=== PATIENT | male | born 1950 | race Caucasian/White ===

== ENCOUNTER 2018-10-20 08:57 | Emergency (ER) | payer MEDICARE, BC ==
[2018-10-20 09:25] VITALS: BP 144/88
--- NOTE | 2018-10-20 09:50 | EDM.PDOC ---
ED HPI GENERAL MEDICAL PROBLEM - General Chief Complaint: General Stated Complaint: CHEST PAIN, LEFT ARM ACHE AND PAINS ON LT SIDE Time Seen by Provider: 10/20/18 09:30 Source of Information: Reports: Patient, Family History Limitations: Reports: No Limitations - History of Present Illness INITIAL COMMENTS - FREE TEXT/NARRATIVE: 68-year-old male who is been having intermittent abdominal pain in the left lower quadrant for the past 2 months, and brief intermittent upper abdominal and chest discomfort for the past several weeks. He had another episode this morning so called the clinic to talk to Dr. Ramos but was sent over to the emergency room. He arrives asymptomatic. He walks one to 2 miles a day without difficulty. His main concern is his abdomen, he feels distended with lots of "burping" but his appetite is fine, bowels are normal, his guaiac was negative last November. No weight loss. Onset: Gradual Improves with: Reports: Other (Actually seems better when he is active, has no symptoms when walking) Worsens with: Reports: None Left Chest Pain Score (Numeric/FACES): 5 - Related Data Allergies Allergy/AdvReac Type Severity Reaction Status Date / Time Penicillins Allergy Mild Rash Verified 10/20/18 09:19 Home Meds: Home Meds NK [No Known Home Meds] 12/22/14 [History] Past Medical History HEENT History: Reports: Cataract, Impaired Vision Gastrointestinal History: Reports: Other (See Below) Other Gastrointestinal History: umbilical - Past Surgical History HEENT Surgical History: Reports: Cataract Surgery Social & Family History - Tobacco Use Smoking Status *Q: Never Smoker - Alcohol Use Days Per Week of Alcohol Use: 2 Number of Drinks Per Day: 1 Total Drinks Per Week: 2 - Recreational Drug Use Recreational Drug Use: No ED ROS GENERAL - Review of Systems Review Of Systems: See Below Constitutional: Denies: Fever, Chills HEENT: Reports: No Symptoms Respiratory: Denies: Shortness of Breath Cardiovascular: Reports: Chest Pain (Intermittent brief chest spasms or pains in the epigastric and substernal area, usually lasting just a few seconds). Denies: Dyspnea on Exertion, Palpitations GI/Abdominal: Reports: Abdominal Pain (Left lower quadrant, intermittent over the past 3 months). Denies: Constipation, Diarrhea, Hematemesis, Hematochezia, Vomiting : Reports: No Symptoms Skin: Reports: No Symptoms Neurological: Reports: No Symptoms Psychiatric: Reports: No Symptoms ED EXAM, GENERAL - Physical Exam Exam: See Below Exam Limited By: No Limitations General Appearance: Alert, No Apparent Distress Eye Exam: Bilateral Eye: Normal Inspection Neck: Supple Respiratory/Chest: No Respiratory Distress, Lungs Clear Cardiovascular: Regular Rate, Rhythm GI/Abdominal: Soft, Non-Tender. No: Rebound, Tender Extremities: Normal Inspection Neurological: Alert, Oriented Psychiatric: Normal Affect, Normal Mood Skin Exam: Warm, Dry Course - Vital Signs Last Recorded V/S: Last Vital Signs Temp 95.6 F 10/20/18 09:18 Pulse 86 10/20/18 09:18 Resp 21 H 10/20/18 09:18 BP 144/88 H 10/20/18 09:18 Pulse Ox 98 10/20/18 09:18 - Orders/Labs/Meds Labs: Laboratory Tests 10/20/18 10/20/18 Range/Units 09:49 09:49 WBC 4.9 (4.5-11.0) K/uL RBC 5.08 (4.30-5.90) M/uL Hgb 16.5 H (12.0-15.0) g/dL Hct 45.9 (40.0-54.0) % MCV 90 (80-98) fL MCH 33 H (27-31) pg MCHC 36 (32-36) % Plt Count 253 (150-400) K/uL Neut % (Auto) 55 (36-66) % Lymph % (Auto) 30 (24-44) % [place] % (Auto) 13 H (2-6) % Eos % (Auto) 2 (2-4) % Baso % (Auto) 1 (0-1) % Sodium 138 L (140-148) mmol/L Potassium 4.3 (3.6-5.2) mmol/L Chloride 101 (100-108) mmol/L Carbon Dioxide 26 (21-32) mmol/L Anion Gap 15.3 H (5.0-14.0) mmol/L BUN 16 (7-18) mg/dL Creatinine 0.9 (0.8-1.3) mg/dL Est Cr Clr Drug Dosing 83.36 mL/min Estimated GFR (MDRD) > 60 (>60) Glucose 133 H (74-106) mg/dL Calcium 9.3 (8.5-10.1) mg/dL Total Bilirubin 0.7 (0.2-1.0) mg/dL AST 19 (15-37) U/L ALT 45 (12-78) U/L Alkaline Phosphatase 71 (46-116) U/L Troponin I < 0.017 (0.000-0.056) ng/mL Total Protein 7.5 (6.4-8.2) g/dL Albumin 3.8 (3.4-5.0) g/dL Globulin 3.7 H (2.3-3.5) g/dL Albumin/Globulin Ratio 1.0 L (1.2-2.2) Lipase 138 (73-393) U/L - Re-Assessments/Exams Free Text/Narrative Re-Assessment/Exam: 10/20/18 10:00 Explained to the patient his symptoms aren't cardiac, a CBC CMP and troponin were obtained. 10/20/18 10:45 Labs are all very reassuring, troponin is 0, hemoglobin is normal. Patient is given a try a trial of omeprazole 40 mg daily for the next 2 weeks, and discuss with Dr. Ramos a recheck with possible stress test and/or colonoscopy. He'll return sooner if worsening. Departure - Departure Time of Disposition: 10:56 Disposition: Home, Self-Care 01 Condition: Good Clinical Impression: Acid reflux Qualifiers: Esophagitis presence: esophagitis presence not specified Qualified Code(s): K21.9 - Gastro-esophageal reflux disease without esophagitis Abdominal pain Qualifiers: Abdominal location: left lower quadrant Qualified Code(s): R10.32 - Left lower quadrant pain - Discharge Information Instructions: Abdominal Pain, Adult, Food Choices for Gastroesophageal Reflux Disease, Adult Referrals: Mike Ramos MD [Primary Care Provider] - Forms: ED Department Discharge Care Plan Goals: Try 40 mg of omeprazole daily either one dose or divided doses for the next [address] Ramos to schedule a recheck within the next 1-2 weeks to discuss a possible stress test, colonoscopy, or both. Return to the emergency room if worsening despite treatment.
== END 2018-10-20 10:56 | disposition home or self-care (01) ==
LOC: JP.ED 08:57
DX: K21.9 Gastro-esophageal reflux disease without esophagitis (principal); R10.32 Left lower quadrant pain; Z88.0 Allergy status to penicillin
CPT/HCPCS: 36415; 80053; 83690; 84484; 85025; 99284; 99285

== ENCOUNTER 2018-11-20 07:42 | Day surgery (SDC) | payer MEDICARE, BC ==
[~2018-11-20 07:42] MED LIST: Midazolam 1 MG/ML 2 ML SDV ONE; Propofol 200 MG/20 ML SDV ONE; fentaNYL 100 MCG/2 ML SDV ONE
[2018-11-20] MEDS ORDERED: Sodium Chloride 0.9% 1,000 ML IV SCH (08:15)
[2018-11-20] MEDS ORDERED: Propofol 200 MG/20 ML SDV ONE (08:54)
[2018-11-20 10:31] VITALS: BP 109/61
--- NOTE | 2018-11-20 13:38 | OR ---
DATE OF PROCEDURE: 11/20/2018 PROCEDURE: 1. EGD. 2. Colonoscopy. FINDINGS: 1. Normal EGD. 2. Transverse colon polyp approximately 1 cm, completely removed using hot snare. COMPLICATIONS: None. GREEN TIRE INSPECTOR: None. ANESTHESIA: MAC. RISKS: Risks, benefits, alternatives, and limitations including, but not limited to infection, bleeding, and perforation were explained to the patient, who wished to proceed. PROCEDURE IN DETAIL: The patient was placed in left lateral decubitus position. The EGD scope was introduced and advanced atraumatically into the second part of the duodenum. No evidence of duodenitis or ulceration. There was no evidence of gastritis or ulceration. On retroflexion, no hiatal hernia. The GE junction was normal. The esophagus was normal. The colonoscopy was then performed next. Digital rectal exam was performed without abnormality. Scope was introduced and advanced atraumatically to the ileocecal valve. A photo was taken of this. The scope was then brought back through the ascending, transverse, descending colon, and retroflexed. The aforementioned polyp was identified in the ascending colon and completely removed using hot snare. No abnormalities on retroflex. The patient tolerated the procedure well. Sheldon Franz MD /[id number]
== END 2018-11-20 10:36 | disposition home or self-care (01) ==
LOC: JP.SDS 07:42
PROVIDERS: ATTEND Surgery
DX: Z12.11 Encounter for screening for malignant neoplasm of colon (principal); D12.2 Benign neoplasm of ascending colon; R10.13 Epigastric pain; K21.9 Gastro-esophageal reflux disease without esophagitis; Z87.891 Personal history of nicotine dependence; Z88.0 Allergy status to penicillin
CPT/HCPCS: 43235; 45385; 88305; J2250; J2704; J3010; J7030

== ENCOUNTER 2019-10-28 12:27 | Emergency (ER) | payer MEDICARE, BC ==
[2019-10-28 13:05] VITALS: BP 156/80; PULSE 71
--- NOTE | 2019-10-28 13:27 | EDM.PDOC ---
ED HPI GENERAL MEDICAL PROBLEM - General Chief Complaint: Abdominal Pain Stated Complaint: LOWER ABD PAIN, HERNIA? Time Seen by Provider: 10/28/19 13:00 Source of Information: Reports: Patient, Family History Limitations: Reports: No Limitations - History of Present Illness INITIAL COMMENTS - FREE TEXT/NARRATIVE: 69-year-old male with a chronic umbilical hernia, has been present at least the last 4 years but today while snow skiing it became incarcerated. He has had some unusual bowel urges over the past 2 days and mild discomfort. No nausea or vomiting. He now comes into the emergency room extremely uncomfortable with pain at the umbilicus. Onset: Unknown/Unsure (Likely at least partially strangulated for the last 2 days) Associated Symptoms: Reports: Other (Low back discomfort). Denies: Nausea/ Vomiting, Shortness of Breath Abdomen Pain Score (Numeric/FACES): 10 - Related Data Allergies Allergy/AdvReac Type Severity Reaction Status Date / Time Penicillins Allergy Mild Rash Verified 10/28/19 12:56 Home Meds: Home Meds NK [No Known Home Meds] 12/22/14 [History] Past Medical History HEENT History: Reports: Cataract, Impaired Vision Gastrointestinal History: Reports: GERD, Other (See Below) Other Gastrointestinal History: umbilical Neurological History: Reports: Concussion - Infectious Disease History Infectious Disease History: Reports: Chicken Pox, Measles - Past Surgical History HEENT Surgical History: Reports: Cataract Surgery GI Surgical History: Reports: None Social & Family History - Tobacco Use Smoking Status *Q: Never Smoker - Caffeine Use Caffeine Use: Reports: Coffee - Recreational Drug Use Recreational Drug Use: No ED ROS GENERAL - Review of Systems Review Of Systems: See Below Constitutional: Reports: Malaise. Denies: Fever, Chills Respiratory: Denies: Shortness of Breath Cardiovascular: Denies: Chest Pain GI/Abdominal: Reports: Abdominal Pain. Denies: Nausea, Vomiting Musculoskeletal: Reports: Back Pain Neurological: Reports: No Symptoms ED EXAM, GI/ABD - Physical Exam Exam: See Below Exam Limited By: No Limitations General Appearance: Alert, Moderate Distress Eyes: Bilateral: Normal Appearance Head: Atraumatic Respiratory/Chest: No Respiratory Distress, Lungs Clear Cardiovascular: Regular Rate, Rhythm GI/Abdominal Exam: Normal Bowel Sounds, Other (Firm extremely tender herniation at the umbilicus) Course - Vital Signs Last Recorded V/S: Last Vital Signs Temp 98.4 F 10/28/19 12:59 Pulse 71 10/28/19 12:59 Resp 22 H 10/28/19 12:59 BP 156/80 H 10/28/19 12:59 Pulse Ox 99 10/28/19 12:59 - Orders/Labs/Meds Labs: Laboratory Tests 10/28/19 10/28/19 10/28/19 Range/Units 13:20 13:20 13:20 WBC 10.6 (4.5-11.0) K/uL RBC 5.27 (4.30-5.90) M/uL Hgb 16.4 H (12.0-15.0) g/dL Hct 47.6 (40.0-54.0) % MCV 90 (80-98) fL MCH 31 (27-31) pg MCHC 35 (32-36) % Plt Count 284 (150-400) K/uL Neut % (Auto) 86 H (36-66) % Lymph % (Auto) 9 L (24-44) % [place] % (Auto) 6 (2-6) % Eos % (Auto) 0 L (2-4) % Baso % (Auto) 0 (0-1) % Sodium 136 L (140-148) mmol/L Potassium 3.9 (3.6-5.2) mmol/L Chloride 99 L (100-108) mmol/L Carbon Dioxide 23 (21-32) mmol/L Anion Gap 17.9 H (5.0-14.0) mmol/L BUN 17 (7-18) mg/dL Creatinine 1.0 (0.8-1.3) mg/dL Est Cr Clr Drug Dosing 74.01 mL/min Estimated GFR (MDRD) > 60 (>60) Glucose 154 H (74-106) mg/dL Lactic Acid 4.6 H (0.4-2.0) mmol/L Calcium 9.1 (8.5-10.1) mg/dL Total Bilirubin 0.6 (0.2-1.0) mg/dL AST 21 (15-37) U/L ALT 35 (12-78) U/L Alkaline Phosphatase 82 (46-116) U/L Total Protein 8.0 (6.4-8.2) g/dL Albumin 4.4 (3.4-5.0) g/dL Globulin 3.6 H (2.3-3.5) g/dL Albumin/Globulin Ratio 1.2 (1.2-2.2) - Re-Assessments/Exams Free Text/Narrative Re-Assessment/Exam: 10/28/19 13:36 Within 20 minutes of the reduction of incarcerated hernia, the patient's symptoms had all but resolved. Dr. Gould consult for surgery, and recommended wearing a hernia belt for the next week and is scheduled surgery for next Saturday. He'll return sooner if he develops symptoms such as persistent nausea or vomiting, increased pain or fever. 10/28/19 14:13 White count is normal, lactic acid is mildly elevated at 4.6. Departure - Departure Time of Disposition: 13:51 Disposition: Home, Self-Care Clinical Impression: Umbilical hernia, incarcerated - Discharge Information Instructions: Umbilical Hernia, Adult Referrals: Mike Ramos MD [Primary Care Provider] - Forms: ED Department Discharge Care Plan Goals: Where the belt at all times to prevent recurrence of herniation. Activity as tolerated, and follow-up next week Saturday for surgery as discussed with Dr. Gould. Return anytime sooner if you develop symptoms such as persistent nausea or vomiting, increased pain or fever. Sepsis Event Note - Evaluation Sepsis Screening Result: No Definite Risk - Focused Exam Vital Signs: Vital Signs Temp Pulse Resp BP Pulse Ox 10/28/19 12:59 98.4 F 71 22 H 156/80 H 99 10/28/19 12:43 98.4 F 71 22 H 156/80 H 99 Date Exam was Performed: 10/28/19 Time Exam was Performed: 14:08
--- NOTE | 2019-10-28 16:12 | CONS ---
DATE OF SERVICE: 10/28/2019 REFERRING PHYSICIAN: CONSULTING PHYSICIAN: Jeremi Gould MD HISTORY: This is a 69-year-old who was shoveling snow today, when he developed quite severe pain in the umbilical area. He is known to have an umbilical hernia, which he was told at some point, it might need to be repaired as it became incarcerated. He presented to the emergency room. This was successfully reduced per Dr. Carlson. The plan at this point is to proceed electively with an umbilical hernia repair. PAST MEDICAL HISTORY: Unremarkable. PAST SURGICAL HISTORY: Shows no previous abdominal surgeries. LABORATORY DATA: Pending, but expected to be unremarkable. PHYSICAL EXAMINATION: The patient now with a reduced umbilical hernia. He still has some incarcerated preperitoneal fat within it, but the main mass has remained well reduced. IMPRESSION: Incarcerated umbilical hernia. PLAN: To proceed with laparoscopic if possible open repair with mesh next Saturday. He will be instructed to wear a binder with some pressure over the umbilical area in the meantime to try to prevent re-incarceration. Otherwise, he will be scheduled for the surgery this coming Saturday. Potential risks were reviewed with the patient, and he wishes to proceed. He is instructed that if it once again becomes painful or incarcerated in the interim, he should present to the emergency room once again. Jeremi Gould MD /[id number]
== END 2019-10-28 13:51 | disposition home or self-care (01) ==
LOC: JP.ED 12:27
DX: K42.0 Umbilical hernia with obstruction, without gangrene (principal); K21.9 Gastro-esophageal reflux disease without esophagitis; Z79.899 Other long term (current) drug therapy; Z88.0 Allergy status to penicillin
CPT/HCPCS: 36415; 80053; 83605; 85025; 99284

== ENCOUNTER 2019-11-02 07:21 | Day surgery (SDC) | payer MEDICARE, BC ==
[~2019-11-02 07:21] MED LIST changes: +Bupivacaine 0.5%/EPINEPHrine 1:200,000 50 ML MDV ONE; +Meropenem 500 MG SDV ONE; -Midazolam 1 MG/ML 2 ML SDV ONE; -Propofol 200 MG/20 ML SDV ONE; +ceFAZolin 2 GM in Premix Bag 1 BAG IV ONE; -fentaNYL 100 MCG/2 ML SDV ONE
[2019-11-02] MEDS ORDERED: Acetaminophen 500 MG Tab PO ONE (07:30)
[2019-11-02] MEDS ORDERED: Celecoxib 200 MG Cap PO ONE ×2 (07:30)
[2019-11-02] MEDS ORDERED: Dextrose 5%-Lactated Ringers 1,000 ML IV SCH (07:45)
[2019-11-02] MEDS ORDERED: fentaNYL 250 MCG/5 ML SDV ONE (07:59)
[2019-11-02] MEDS ORDERED: Propofol 200 MG/20 ML SDV ONE (08:00)
[2019-11-02] MEDS ORDERED: Succinylcholine 200 MG/10 ML MDV ONE (08:00)
[2019-11-02] MEDS ORDERED: Ondansetron 4 MG/2 ML SDV ONE (08:00)
[2019-11-02] MEDS ORDERED: Neostigmine Methylsulfate 1 MG/ML 5 ML Syringe ONE (08:00)
[2019-11-02] MEDS ORDERED: Rocuronium 50 MG/5 ML Vial ONE (08:00)
[2019-11-02] MEDS ORDERED: Dexamethasone 4 MG/ML SDV ONE (08:00)
[2019-11-02] MEDS ORDERED: Glycopyrrolate 0.2 MG/ML 5 ML MDV ONE (08:00)
[2019-11-02] MEDS ORDERED: ceFAZolin 2 GM in Premix Bag 1 BAG IV ONE (08:15)
[2019-11-02] MEDS ORDERED: Ketamine 500 MG/5 ML MDV IV SCH (08:45)
[2019-11-02] MEDS ORDERED: fentaNYL 100 MCG/2 ML SDV ONE (10:04)
[2019-11-02] MEDS ORDERED: Ondansetron 4 MG/2 ML SDV IVPUSH PRN (12:08)
[2019-11-02] MEDS ORDERED: oxyCODONE 5 MG Tab PO PRN (12:08)
[2019-11-02] MEDS ORDERED: Cyclobenzaprine 10 MG Tab PO PRN (12:10)
[2019-11-02] MEDS ORDERED: hydrOXYzine HCl 25 MG Tab PO PRN (12:10)
[2019-11-02] MEDS: Tamsulosin 0.4 MG Cap.ER PO SCH ×2 (13:04→22:03)
[2019-11-02] MEDS: Dextrose 5%-Lactated Ringers 1,000 ML IV SCH ×2 (15:31→18:17)
[2019-11-02] MEDS: Acetaminophen 500 MG Tab PO SCH ×2 (16:06→22:03)
[2019-11-02] MEDS: ceFAZolin 2 GM in Premix Bag 1 BAG IV SCH ×2 (16:06→23:28)
[2019-11-03] MEDS: Dextrose 5%-Lactated Ringers 1,000 ML IV SCH (00:57)
[2019-11-03] MEDS: Acetaminophen 500 MG Tab PO SCH (06:14)
[2019-11-03 07:31] VITALS: BP 139/84; PULSE 71
[2019-11-03] MEDS: ceFAZolin 2 GM in Premix Bag 1 BAG IV SCH (07:42)
[2019-11-03] MEDS ORDERED: Polyethylene Glycol 3350 Powder 17 GM Packet PO SCH (09:00)
[2019-11-03] MEDS ORDERED: Docusate Sodium 100 MG Cap PO SCH (09:00)
--- NOTE | 2019-11-04 05:04 | DISCH ---
ADMISSION DIAGNOSES: Incarcerated umbilical hernia, osteoarthrosis shoulder, history of tobacco use. DISCHARGE DIAGNOSES: Diagnostic laparoscopy with repair of incarcerated umbilical hernia for incarcerated umbilical hernia. Date of surgery: 11/02/2019. Surgeon: Jeremi Gould MD. HISTORY: Manoj Horvath is a 69-year-old male with an umbilical hernia. After preoperative evaluation and discussion of possible risks and possible complications, he wished to proceed with surgical procedure. HOSPITAL COURSE: Manoj had his surgery on 11/02/2019. He had no operative complications. Pain was controlled with Tylenol and he was able to be discharged to home on postoperative day 1. PHYSICAL EXAMINATION: GENERAL: Manoj Horvath is a 69-year-old male, height is 5 feet 10 inches, weight is 199 pounds. TPR is 98.2, 71, 16. Blood pressure 139/84. HEENT: Negative. NECK: Supple. HEART: Regular rate and rhythm. LUNGS: Clear. ABDOMEN: Dressing dry and intact. Abdominal binder is on. EXTREMITIES: Without peripheral edema. DISPOSITION: Discharged to home. CONDITION: Stable and improving. FOLLOWUP APPOINTMENT: Jeremi Gould MD, on 11/11/2019 at 9 a.m. HOME MEDICATIONS: 1. Tylenol 1000 mg 4 times daily p.r.n. pain. 2. Colace 100 mg twice daily, #60, 11 refills. 3. MiraLAX 17 g oral daily, #30 and 11 refills. He is to resume his 1 drop each eye p.r.n. for dry eyes. DIET: Usual diet as tolerated. Drink 8 to 10 glasses of water a day. ACTIVITY: No lifting greater than 10 pounds for 6 weeks. Driving, do not drive for 1 week and while on pain medication. Shower/bathing: May shower. DISCHARGE INSTRUCTIONS: Notify provider if any fever, increased pain, nausea, or vomiting. Keep site clean and dry. Wear abdominal binder for 6 weeks and put a pressure dressing, a rolled up Kerlix or washcloth over hernia site for 2 weeks. Use incentive spirometer 10 times every hour while awake for 1 week.
--- NOTE | 2019-11-05 09:40 | OR ---
DATE OF PROCEDURE: 11/02/2019 SURGEON: Jeremi Gould MD PREOPERATIVE DIAGNOSIS: Incarcerated umbilical hernia. POSTOPERATIVE DIAGNOSES: 1. Incarcerated umbilical hernia. 2. Incarcerated secondary epigastric hernia. OPERATIVE PROCEDURES: Diagnostic laparoscopy with: 1. Repair of incarcerated umbilical hernia with mesh (24166). 2. Repair of additional non incarcerated epigastric hernia with mesh (52312). 3. Placement of Interceed mesh to displace pelvic and abdominal wall from overlying mesh and pelvic wall surfaces to limit recurrent adhesion formation. ANESTHESIA: General. SMALL ENGINE TRAINER: Crystal Burton PA-C INDICATIONS FOR PROCEDURE: This is a 69-year-old male presenting after having an incarcerated umbilical hernia last week. This was reduced in the emergency room with some considerable effort. At this point, plan is to proceed with a repair of the hernia with a mesh technique, we will attempt the laparoscopic approach. Potential risks including bleeding, infection, injury to underlying viscera, problems with the hernia recurring or the mesh becoming infected as well as the remote possibility of cardiopulmonary, septic, or hemorrhagic complications leading to were all discussed and the patient wishes to proceed. DETAILS OF PROCEDURE: The patient was taken to the operating room, placed in a supine position. After general endotracheal anesthesia was induced, a Macdonald catheter was inserted, and the abdomen prepped and draped. In the left lateral abdomen, a transverse incision was made and the peritoneal cavity entered under direct vision with an Optiview trocar, inflated to 15 mmHg pressure with CO2. Laparoscope was then reinserted. No underlying trocar insertion site injuries were seen. Following this, 5 mm trocar was placed in the left lower quadrant as well as left upper quadrant, and the area of the hernia identified. This contained some incarcerated omentum at this point. No bowel was present on the exam today. The umbilical hernia contents were then gradually reduced with combination of external pressure and Harmonic scalpel dissection and those were then excised and sent as pathologic specimen. As one divided some of the preperitoneal fat superiorly, obtained a good surface for application of the mesh. A 1 cm fascia defect in the mid epigastric line roughly 3 cm above the primary umbilical hernia was identified. This contained some preperitoneal fat, which was reduced and reflected back into the peritoneal cavity. Some of the falciform ligament was then also divided away from the abdominal wall to allow more accurate apposition of the mesh to the abdominal wall. At this point, the Ventralight ST mesh with a diameter of 15.3 cm in a circular configuration was placed after being soaked in antibiotic-containing saline solution and then placed in intraperitoneal location. Centered over the hernia, a small stab wound was made in the skin and the suture passer device passed through the abdominal wall. The balloon inflation catheter through the mesh system was then grasped and pulled up through the abdominal wall bringing the mesh into center location with regard to the hernias. The balloon was then inflated and using absorbable tacking screws, the mesh was circumferentially fixed at its outer edge, and at that point, the balloon deflated and withdrawn. Additional tacking screws were then placed more directly around the hernias circumferentially as well and the mesh appeared to be well fixed at this point. To avoid adhesion formation near between the mesh and adjacent abdominal pelvic sidewall, the Interceed mesh was then placed to provide separation from those surfaces and the underlying viscera. At that point, the trocars were removed. Fascia at the 12 mm site was closed with 0 Vicryl stitch. Bilateral transverse abdominis plane blocks had been placed and the wounds were then also anesthetized with 1% lidocaine mixed with Marcaine and the incision was closed at skin level with 4-0 Vicryl stitch. The patient was taken to the recovery room in satisfactory condition. Physician administrative office assistant, Crystal Burton, played an essential role in assisting in this case, helping to position the patient, retract structures as needed, as well as suturing and cutting sutures when indicated. Her presence improved patient safety and decreased the operative time. Jeremi Gould MD /[id number]
== END 2019-11-03 09:30 | disposition home or self-care (01) ==
LOC: JP.SDS 07:21 → JP.2SS 10:10 → JP.SDS 11-03 09:30
PROVIDERS: ATTEND Surgery
DX: K42.0 Umbilical hernia with obstruction, without gangrene (principal); K43.9 Ventral hernia without obstruction or gangrene; K21.9 Gastro-esophageal reflux disease without esophagitis; M19.019 Primary osteoarthritis, unspecified shoulder; Z87.891 Personal history of nicotine dependence; Z79.899 Other long term (current) drug therapy; Z88.0 Allergy status to penicillin
CPT/HCPCS: 49653; 88302; 94762; A9270; C1713; C1781; J0171; J0690; J1100; J2020; J2185; J2405; J2704; J2710; J2795; J3010; J3490; J7050; J7121; J0330

== ENCOUNTER 2023-02-26 06:47 | Day surgery (SDC) | payer MEDICARE, BC ==
[2023-02-26] MEDS ORDERED: Propofol 200 MG/20 ML SDV ONE (07:11)
[2023-02-26] MEDS ORDERED: Midazolam 1 MG/ML 2 ML SDV ONE (07:11)
[2023-02-26] MEDS ORDERED: fentaNYL 50 MCG/ML SDV ONE (07:11)
[2023-02-26] MEDS ORDERED: Lactated Ringers 1,000 ML IV SCH (07:30)
[2023-02-26 10:08] VITALS: BP 130/85; PULSE 80
== END 2023-02-26 10:15 | disposition home or self-care (01) ==
LOC: JP.SDS 06:47
PROVIDERS: ATTEND Family Medicine
DX: Z12.11 Encounter for screening for malignant neoplasm of colon (principal); K21.9 Gastro-esophageal reflux disease without esophagitis; Z86.010 Personal history of colon polyps
CPT/HCPCS: 45378; G0105; J2250; J2704; J3010; J7120